=== PATIENT | male | born 1945 | race African-American/Black ===

== ENCOUNTER 2016-06-26 06:02 | Inpatient (IN) | payer OTHER ==
[2016-06-13 11:02] VITALS: BMI 34.4
[2016-06-26] MEDS ORDERED: CELECOXIB 200 MG CAPSULE PO ONE (06:13)
[2016-06-26] MEDS ORDERED: TRANEXAMIC ACID 1000 MG/10 ML VIAL IVPUSH ONE (06:13)
[2016-06-26] MEDS ORDERED: ROPIVICAINE 0.2%/MORPH PF/KETOROLAC - 51ML DISP.SYRINGE IA ONE ×2 (06:13→10:32)
[2016-06-26] MEDS ORDERED: CEFAZOLIN 2 GM in DEXTROSE 5%-WATER - 50 ML IVPB ONE (06:13)
[2016-06-26] MEDS ORDERED: GABAPENTIN 300 MG CAPSULE (FP) PO ONE (06:13)
[2016-06-26] MEDS ORDERED: PROPOFOL 20 ML ONE ×2 (06:57→09:46)
[2016-06-26] MEDS ORDERED: SUCCINYLCHOLINE CHLORIDE 200 MG/10 ML VIAL ONE (06:58)
[2016-06-26] MEDS ORDERED: LIDOCAINE HCL/PF 2% SDV 5ML VIAL ONE (07:03)
[2016-06-26] MEDS ORDERED: BUPIVACAINE HCL/PF 0.5% (5MG/ML) 10 ML VIAL ONE (07:08)
[2016-06-26] MEDS ORDERED: MIDAZOLAM HCL 2 MG/2 ML SINGLE DOSE VIAL ONE (07:29)
[2016-06-26] MEDS ORDERED: SODIUM CHLORIDE 0.9% P/F 10 ML VIAL IJ ONE ×2 (07:29→08:43)
[2016-06-26] MEDS ORDERED: ROPIVACAINE HCL 0.5% 30ML VIAL ONE (07:29)
[2016-06-26] MEDS ORDERED: DEXAMETHASONE SOD PHOSPHATE/PF 10 MG/ML SDV ONE (07:29)
[2016-06-26] MEDS ORDERED: TRANEXAMIC ACID 1000 MG/10 ML VIAL ONE (08:32)
[2016-06-26] MEDS ORDERED: ePHEDrine SULFATE 50 MG/1 ML AMPULE ONE (08:42)
[2016-06-26] MEDS ORDERED: ceFAZolin SODIUM 1 GM VIAL ONE ×3 (09:21→10:16)
[2016-06-26] MEDS ORDERED: ONDANSETRON 4 MG/2 ML VIAL ONE (10:09)
[2016-06-26] MEDS ORDERED: ONDANSETRON 4 MG/2 ML VIAL IVPUSH PRN (10:53)
[2016-06-26] MEDS ORDERED: PROMETHAZINE HCL 25 MG/1 ML VIAL IVPUSH PRN (10:53)
[2016-06-26] MEDS ORDERED: oxyCODONE HCL 5 MG TABLET PO PRN ×2 (10:54)
[2016-06-26] MEDS ORDERED: ROPIVACAINE 0.2% 400ML 400 ML ML NR ONE ×2 (10:54→15:00)
[2016-06-26] MEDS ORDERED: LACTATED RINGERS SOLUTION 1,000 ML IV SCH (11:00)
[2016-06-26] MEDS ORDERED: PATIENT'S OWN MEDICATION (NON-FORMULARY) (Alendronate Na [Fosamax (Weekly)] 70 MG) PO SCH (11:30)
[2016-06-26] MEDS: ACETAMINOPHEN 1000 MG/100 ML VIAL (NON FORMULARY) IVPB ONE ×2 (12:10→13:57)
[2016-06-26] MEDS ORDERED: INSULIN (NOVOLOG) ASPART 100 UNITS/ML 10ML VIAL ONE ×3 (12:29→21:04)
[2016-06-26] MEDS: INSULIN (NOVOLOG) ASPART 100 UNITS/ML 10ML VIAL SQ ONE ×2 (12:38→14:00)
[2016-06-26] MEDS ORDERED: MAGNESIUM HYDROX 2400MG/30ML ORAL SUSPENSION 30 ML CUP PO PRN (13:48)
[2016-06-26] MEDS ORDERED: MAG HYDROX/AL HYDROX/SIMETH 30 ML UNIT-DOSE CUP PO PRN (13:48)
[2016-06-26] MEDS ORDERED: ONDANSETRON 4 MG/2 ML VIAL IVPB PRN (13:48)
[2016-06-26] MEDS ORDERED: INSULIN GLARGINE HUM REC ANLOG 22 UNIT SQ SCH (14:00)
[2016-06-26] MEDS: SODIUM CHLORIDE 1,000 ML IV SCH (14:33)
[2016-06-26] MEDS: CEFAZOLIN 2 GM/D5W 50 ML IVPB SCH ×2 (15:45→23:42)
[2016-06-26] MEDS ORDERED: INSULIN SLIDING SCALE (NOVOLOG) 1 VIAL SQ SCH (16:30)
[2016-06-26] MEDS: INSULIN SLIDING SCALE (NOVOLOG) 1 VIAL SQ SCH ×2 (16:43→21:14)
[2016-06-26] MEDS: ACETAMINOPHEN 325 MG TABLET (FP) PO SCH ×2 (18:00→23:42)
--- NOTE | 2016-06-26 19:16 | CONSULT ---
Consultation: REQUESTING PROVIDER: Dr. Romero CONSULT REQUEST: We have been asked to medically evaluate this patient for ( Medical Management). HISTORY OF PRESENT ILLNESS: This is a pleasant 71 y/o male with a PMHx of: Hypertension, Diabetes Mellitus, Prostate Ca (injections q6 months). PSHx of: Right Knee Arthroscopy 20 yrs ago. s/p R- TKR POD #0. Who is at the bedside alert, awake and oriented. Patient reports he decided to have surgery secondary to his decreased mobility and constant knee pain. Patient reports being pain free, PS 0/10. Patient reports full sensation to his lower extremity. Patient reports voiding without incident. He denies fever, chills, cough, SOB, dizziness, CP, AP, N/V/D. PAST MEDICAL HISTORY: Hypertension, Diabetes Mellitus, Prostate Ca (injections q6 months) PAST SURGICAL HISTORY: Right Knee Arthroscopy 20 yrs ago SOCIAL HISTORY He denies Tobacco, Alcohol, RD use FAMILY HISTORY None ALLERGIES 3 Allergy/AdvReac Type Severity Reaction Status Date / Time No Known Drug Allergies Allergy Verified 06/13/16 10:53 BAND AIDS AdvReac Severe Itching Uncoded 06/13/16 10:53 HOME MEDICATIONS 3 Medication Instructions Recorded Alendronate Na [Fosamax] 70 mg PO Q7D 06/13/16 Amlodipine Besylate [Norvasc -] 10 mg PO HS 06/13/16 Aspirin [Aspirin EC] 81 mg PO DAILY 06/13/16 Atorvastatin Ca [Lipitor] 80 mg PO HS 06/13/16 Calcium Carbonate/Vitamin D3 1 each PO BID 06/13/16 [Calcium 600 + Vit D Tablet] Cholecalciferol (Vitamin D3) 1,000 unit PO DAILY 06/13/16 [Vitamin D3 -] Fosinopril Sodium [Monopril -] 80 mg PO HS 06/13/16 Furosemide [Lasix -] 40 mg PO DAILY 06/13/16 Insulin (Levemir) [Levemir Flexpen 30 units SQ BID 06/13/16 -] Terazosin HCl 2 mg PO BID 06/13/16 Ferrous Sulfate 325 mg PO BID 06/26/16 Insulin Glargine,Hum.rec.anlog 22 units SQ TID 06/26/16 [Lantus Solostar PEN (NF)] REVIEW OF SYSTEMS: CONSTITUTIONAL: Absent: fever, chills, diaphoresis, generalized weakness, malaise, loss of appetite, weight change HEENT: Absent: rhinorrhea, nasal congestion, throat pain, throat swelling, difficulty swallowing, mouth swelling, ear pain, eye pain, visual changes CARDIOVASCULAR: Absent: chest pain, syncope, palpitations, irregular heart rate, lightheadedness , peripheral edema RESPIRATORY: Absent: cough, shortness of breath, dyspnea with exertion, orthopnea, wheezing, stridor, hemoptysis GASTROINTESTINAL: Absent: abdominal pain, abdominal distension, nausea, vomiting, diarrhea, constipation, melena, hematochezia GENITOURINARY: Absent: dysuria, frequency, urgency, hesitancy, hematuria, flank pain, genital pain MUSCULOSKELETAL: right knee pain Absent: myalgia, arthralgia, joint swelling, back pain, neck pain SKIN: Absent: rash, itching, pallor HEMATOLOGIC/IMMUNOLOGIC: Absent: easy bleeding, easy bruising, lymphadenopathy, frequent infections ENDOCRINE: Absent: unexplained weight gain, unexplained weight loss, heat intolerance, cold intolerance NEUROLOGIC: Absent: headache, focal weakness or paresthesias, dizziness, unsteady gait, seizure, mental status changes, bladder or bowel incontinence PSYCHIATRIC: Absent: anxiety, depression, suicidal or homicidal ideation, hallucinations. PHYSICAL EXAMINATION Vital Signs - 24 hr 06/26/16 06/26/16 06/26/16 06:47 07:10 11:37 Temperature 98.6 F 97.7 F Pulse Rate 76 72 Respiratory 18 16 Rate Blood Pressure 114/64 112/88 O2 Sat by Pulse 98 99 Oximetry (%) 06/26/16 06/26/16 06/26/16 11:40 11:45 11:50 Temperature Pulse Rate 66 70 64 Respiratory 15 16 13 Rate Blood Pressure 139/68 139/72 138/68 O2 Sat by Pulse 100 100 100 Oximetry (%) 06/26/16 06/26/16 06/26/16 12:05 12:20 12:35 Temperature Pulse Rate 71 58 L 75 Respiratory 15 14 14 Rate Blood Pressure 133/63 132/67 138/68 O2 Sat by Pulse 100 100 100 Oximetry (%) 06/26/16 06/26/16 06/26/16 12:42 13:48 14:39 Temperature 97.7 F 97.4 F L Pulse Rate 58 L 68 Respiratory 14 18 18 Rate Blood Pressure 132/67 133/66 O2 Sat by Pulse 100 Oximetry (%) GENERAL: Obese, awake, alert, and fully oriented, in no acute distress. HEAD: Normal with no signs of trauma. EYES: Pupils equal, round and reactive to light, extraocular movements intact, sclera anicteric, conjunctiva clear. No lid lag. EARS, NOSE, THROAT: Ears normal, nares patent, oropharynx clear without exudates. Moist mucous membranes. NECK: Normal range of motion, supple without lymphadenopathy, JVD, or masses. LUNGS: Breath sounds equal, clear to auscultation bilaterally. No wheezes, and no crackles. No accessory muscle use. HEART: Regular rate and rhythm, normal S1 and S2 without murmur, rub or gallop. ABDOMEN: Soft, nontender, not distended, normoactive bowel sounds, no guarding, no rebound, no masses. No hepatomegaly or splenomegaly. MUSCULOSKELETAL: LROM RLE, mild TN to palpation, dressing dry and intact, no active bleed. Icepack, stimulator noted. Normal range of motion at RUE, LUE, LLE joints. No bony deformities or tenderness. No CVA tenderness. UPPER EXTREMITIES: 2+ pulses, warm, well-perfused. No cyanosis. No clubbing. Cap refill <2 seconds. No peripheral edema. LOWER EXTREMITIES: 2+ pulses, warm, well-perfused. No calf tenderness. No peripheral edema. NEUROLOGICAL: Cranial nerves II-XII intact. Normal speech. Normal gait. PSYCHIATRIC: Cooperative. Good eye contact. Appropriate mood and affect. SKIN: Warm, dry, normal turgor, no rashes or lesions noted. Laboratory Results - last 24 hr 06/26/16 06/26/16 06/26/16 06:33 08:47 12:13 POC Glucometer 213 199 255 06/26/16 16:37 POC Glucometer 391 Active Medications Generic Name Dose Route Start Last Admin Trade Name Freq PRN Reason Stop Dose Admin Acetaminophen 650 mg 06/26/16 18:00 06/26/16 18:00 Tylenol - PO 06/29/16 17:59 650 mg Q6H MAGDALENO Administration Al Hydroxide/Mg Hydroxide 30 ml 06/26/16 13:48 Mylanta Oral Suspension - PO Q4H PRN DYSPEPSIA Amlodipine Besylate 10 mg 06/26/16 22:00 Norvasc - PO HS MAGDALENO Ascorbic Acid 500 mg 06/26/16 22:00 Vitamin C - PO BID [facility] Aspirin 325 mg 06/27/16 08:00 Asa - PO DAILY@0800 [facility] Atorvastatin Calcium 80 mg 06/26/16 22:00 Lipitor - PO HS [facility] Calcium Carbonate/Cholecalciferol 1 tab 06/26/16 22:00 Os-Saravanan 500+D - PO BID [facility] Celecoxib 200 mg 06/27/16 10:00 Celebrex - PO DAILY [facility] Cholecalciferol 1,000 unit 06/27/16 10:00 Vitamin D3 - PO DAILY [facility] Fentanyl 25 mcg 06/26/16 10:53 Sublimaze Injection - IVPUSH 06/29/16 10:54 [id number] PRN PAIN Ferrous Sulfate 325 mg 06/26/16 22:00 Feosol - PO BID [facility] Furosemide 40 mg 06/27/16 10:00 Lasix - PO DAILY [facility] Gabapentin 300 mg 06/26/16 22:00 Neurontin - PO 06/29/16 21:59 BID [facility] Cefazolin Sodium/Dextrose 50 mls @ 100 mls/hr 06/26/16 16:00 06/26/16 15:45 Ancef 2 Gm Premixed Ivpb - IVPB 06/27/16 00:29 100 mls/hr Q8H [facility] Administration Sodium Chloride 1,000 mls @ 125 mls/hr 06/26/16 14:00 06/26/16 14:33 Normal Saline - IV 125 mls/hr ASDIR [facility] Administration Insulin Aspart 1 vial 06/26/16 16:30 06/26/16 16:43 Novolog Vial Sliding Scale - SQ 10 units ACHS [facility] Administration Protocol Insulin Detemir 30 units 06/26/16 22:00 Levemir Vial SQ BIDI [facility] Magnesium Hydroxide 30 ml 06/26/16 13:48 Milk Of Magnesia - PO PRN PRN CONSTIPATION Multivitamins/Minerals/Vitamin C 1 tab 06/27/16 10:00 Tab-A-Vit - PO DAILY [facility] Non-Formulary Medication 80 mg 06/26/16 22:00 Fosinopril Sodium PO HS [facility] Ondansetron HCl 4 mg 06/26/16 13:48 Zofran Injection IVPB Q6H PRN NAUSEA Oxycodone HCl 10 mg 06/26/16 22:00 Oxycontin - PO 06/29/16 10:54 BID MAGDALENO Oxycodone HCl 5 mg 06/26/16 10:54 Roxicodone - PO 06/29/16 10:55 Q4H PRN PAIN LEVEL 1-5 Oxycodone HCl 10 mg 06/26/16 10:54 Roxicodone - PO 06/29/16 10:55 Q4H PRN PAIN LEVEL 6-10 Pantoprazole Sodium 40 mg 06/27/16 10:00 Protonix - PO DAILY MAGDALENO Senna/Docusate Sodium 1 tablet 06/26/16 22:00 Pericolace - PO BID MAGDALENO Terazosin HCl 2 mg 06/26/16 22:00 Hytrin - PO BID MAGDALENO ASSESSMENT/PLAN: 71 y/o male with a PMHx HTN, DM, OA. s/p R-TKR, POD #0. 1. Continue Ortho Regimen 2. Hypertension- monitor BP, continue Norvac 3. Diabetes Mellitus- Uncontrolled likely possible due to inflammatory response , stress. BGMs, ISS, monitor renal function 4. OA- Continue current treatment plan 5. HLD- Continue Statin 5. PT 6. Incentive Spirometer 7. Repeat CBC, BMP in am Dispo: We will continue to follow the patient. Thank you for this consultative opportunity. Problem List - Problems (1) Status post total right knee replacement Code(s): Z96.651 - PRESENCE OF RIGHT ARTIFICIAL KNEE JOINT (2) HTN (hypertension) Code(s): I10 - ESSENTIAL (PRIMARY) HYPERTENSION (3) Diabetes mellitus Code(s): E11.9 - TYPE 2 DIABETES MELLITUS WITHOUT COMPLICATIONS (4) Prostate cancer Code(s): C61 - MALIGNANT NEOPLASM OF PROSTATE (5) DVT prophylaxis Code(s): YJS0750 - Visit type - Emergency Visit Emergency Visit: No - New Patient This patient is new to me today: Yes Date on this admission: 06/26/16 - Critical Care Critical Care patient: No
[2016-06-26] MEDS ORDERED: PT OWN MED DRAWER 7, Y5N ONE (21:07)
[2016-06-26] MEDS: INSULIN DETEMIR 100 UNITS/ML MDV SQ SCH (21:14)
[2016-06-26] MEDS: CALCIUM 500MG/VIT-D 200 UNITS COMBO TABLET (FP) PO SCH (21:17)
[2016-06-26] MEDS: TERAZOSIN HCL 1 MG CAPSULE PO SCH (21:17)
[2016-06-26] MEDS: amLODIPine BESYLATE 10 MG TABLET (FP) PO SCH (21:17)
[2016-06-26] MEDS: GABAPENTIN 300 MG CAPSULE (FP) PO SCH (21:17)
[2016-06-26] MEDS: oxyCODONE HCL 10 MG SUSTAINED ACTING TABLET PO SCH (21:17)
[2016-06-26] MEDS: SENNOSIDES/DOCUSATE COMBO (SENNA PLUS) TABLET (UD) PO SCH (21:18)
[2016-06-26] MEDS: ASCORBIC ACID 500 MG TABLET (FP) PO SCH (21:18)
[2016-06-26] MEDS: ATORVASTATIN CA 80 MG TABLET (FP) PO SCH (21:18)
[2016-06-26] MEDS: FERROUS SO4 325 MG TABLET (FP) PO SCH (21:56)
[2016-06-26] MEDS ORDERED: GABAPENTIN 300 MG CAPSULE (FP) PO SCH (22:00)
[2016-06-26] MEDS ORDERED: FOSINOPRIL SODIUM PO SCH (22:00)
[2016-06-27] MEDS: ACETAMINOPHEN 325 MG TABLET (FP) PO SCH ×3 (06:46→17:38)
[2016-06-27] MEDS: INSULIN DETEMIR 100 UNITS/ML MDV SQ SCH ×2 (06:47→16:47)
[2016-06-27] MEDS: INSULIN SLIDING SCALE (NOVOLOG) 1 VIAL SQ SCH ×4 (06:47→21:36)
[2016-06-27] MEDS: ASPIRIN 325 MG TABLET PO SCH (08:02)
[2016-06-27 08:19] LABS: MCH 29.4 pg (25.7-33.7); MCHC 32.8 g/dl (32.0-35.9); MEAN CELL VOLUME 89.6 fl (80-96); PLATELET COUNT 199 K/MM3 (134-434); RDW 13.3 % (11.9-15.9); WHITE BLOOD COUNT 8.6 K/mm3 (4.0-10.8)
[2016-06-27 08:32] LABS: ANION GAP 7 (8-16); CALCIUM 8.4 mg/dl (8.4-10.2); CO2 22 mmol/L (22-28); GLUCOSE,RANDOM 267 mg/dl (74-106)
[2016-06-27] MEDS: PANTOPRAZOLE 40 MG TABLET (FP) PO SCH (09:05)
[2016-06-27] MEDS: CELECOXIB 200 MG CAPSULE PO SCH (09:05)
[2016-06-27] MEDS: FUROSEMIDE 40 MG TABLET (FP) PO SCH (09:05)
[2016-06-27] MEDS: oxyCODONE HCL 10 MG SUSTAINED ACTING TABLET PO SCH ×2 (09:05→21:35)
[2016-06-27] MEDS: MULTIVITAMINS (DAILY MVI) TABLET (FP) PO SCH (09:05)
[2016-06-27] MEDS: FERROUS SO4 325 MG TABLET (FP) PO SCH ×2 (09:05→21:36)
[2016-06-27] MEDS: SENNOSIDES/DOCUSATE COMBO (SENNA PLUS) TABLET (UD) PO SCH ×2 (09:05→21:34)
[2016-06-27] MEDS: CHOLECALCIFEROL (VITAMIN D3) 1,000 UNIT TABLET (FP) PO SCH (09:05)
[2016-06-27] MEDS: ASCORBIC ACID 500 MG TABLET (FP) PO SCH ×2 (09:05→21:35)
[2016-06-27] MEDS: CALCIUM 500MG/VIT-D 200 UNITS COMBO TABLET (FP) PO SCH ×2 (09:05→21:34)
[2016-06-27] MEDS: GABAPENTIN 300 MG CAPSULE (FP) PO SCH ×2 (09:06→21:34)
[2016-06-27] MEDS: TERAZOSIN HCL 1 MG CAPSULE PO SCH ×2 (09:07→21:33)
[2016-06-27] MEDS ORDERED: INSULIN (NOVOLOG) ASPART 100 UNITS/ML 10ML VIAL ONE ×3 (11:13→21:26)
--- NOTE | 2016-06-27 11:21 | PN ---
[id number] OBJECTIVE: patient is a t 71 y/o male with a PMHx of: Hypertension, IDDM , Prostate Ca (injections q6 months). PSHx of: Right Knee Arthroscopy 20 yrs ago. s/p R- TKR POD # 1 Vital Signs Period Temp Pulse Resp BP Sys/Dominguez Pulse Ox Last 24 Hr 97.4 F-97.9 F 58-75 13-18 112-139/59-88 98-100 GENERAL: The patient is awake, alert, and fully oriented, in no acute distress. HEAD: Normal with no signs of trauma. EYES: PERRL, extraocular movements intact, sclera anicteric, conjunctiva clear. No ptosis. ENT: Ears normal, nares patent, oropharynx clear without exudates, moist mucous membranes. NECK: Trachea midline, full range of motion, supple. LUNGS: Breath sounds equal, clear to auscultation bilaterally, no wheezes, no crackles, no accessory muscle use. HEART: Regular rate and rhythm, S1, S2 without murmur, rub or gallop. ABDOMEN: Soft, nontender, nondistended, normoactive bowel sounds, no guarding, no rebound, no hepatosplenomegaly, no masses. EXTREMITIES: 2+ pulses, warm, well-perfused, no edema. RIGHT LOWER EXTREMITIES: dressing CDI, less than 3 second capillary refill, + 3 pedal pulse NEUROLOGICAL: Cranial nerves II through XII grossly intact. Normal speech, gait not observed. PSYCH: Normal mood, normal affect. SKIN: Warm, dry, normal turgor, no rashes or lesions noted Laboratory Results - last 24 hr 06/26/16 06/26/16 06/26/16 12:13 16:37 21:11 WBC RBC Hgb Hct MCV MCHC RDW Plt Count MPV Sodium Potassium Chloride Carbon Dioxide Anion Gap BUN Creatinine POC Glucometer 255 391 370 Random Glucose Calcium 06/27/16 06/27/16 06/27/16 06:43 07:00 07:00 WBC 8.6 RBC 3.38 L Hgb 9.9 L Hct 30.3 L MCV 89.6 MCHC 32.8 RDW 13.3 Plt Count 199 MPV 9.0 Sodium 136 Potassium 5.2 H Chloride 107 Carbon Dioxide 22 Anion Gap 7 L BUN 39 H Creatinine 2.0 H POC Glucometer 254 Random Glucose 267 H Calcium 8.4 Active Medications Generic Name Dose Route Start Last Admin Trade Name Freq PRN Reason Stop Dose Admin Acetaminophen 650 mg 06/26/16 18:00 06/27/16 11:16 Tylenol - PO 06/29/16 17:59 650 mg Q6H MAGDALENO Administration Al Hydroxide/Mg Hydroxide 30 ml 06/26/16 13:48 Mylanta Oral Suspension - PO Q4H PRN DYSPEPSIA Amlodipine Besylate 10 mg 06/26/16 22:00 06/26/16 21:17 Norvasc - PO 10 mg HS MAGDALENO Administration Ascorbic Acid 500 mg 06/26/16 22:00 06/27/16 09:05 Vitamin C - PO 500 mg BID MAGDALENO Administration Aspirin 325 mg 06/27/16 08:00 06/27/16 08:02 Asa - PO 325 mg DAILY@0800 MAGDALENO Administration Atorvastatin Calcium 80 mg 06/26/16 22:00 06/26/16 21:18 Lipitor - PO 80 mg HS MAGDALENO Administration Calcium Carbonate/Cholecalciferol 1 tab 06/26/16 22:00 06/27/16 09:05 Os-Saravanan 500+D - PO 1 tab BID MAGDALENO Administration Celecoxib 200 mg 06/27/16 10:00 06/27/16 09:05 Celebrex - PO 200 mg DAILY MAGDALENO Administration Cholecalciferol 1,000 unit 06/27/16 10:00 06/27/16 09:05 Vitamin D3 - PO 1,000 unit DAILY MAGDALENO Administration Fentanyl 25 mcg 06/26/16 10:53 Sublimaze Injection - IVPUSH 06/29/16 10:54 [id number] PRN PAIN Ferrous Sulfate 325 mg 06/26/16 22:00 06/27/16 09:05 Feosol - PO 325 mg BID MAGDALENO Administration Furosemide 40 mg 06/27/16 10:00 06/27/16 09:05 Lasix - PO 40 mg DAILY MAGDALENO Administration Gabapentin 300 mg 06/26/16 22:00 06/27/16 09:06 Neurontin - PO 06/29/16 21:59 300 mg BID MAGDALENO Administration Sodium Chloride 1,000 mls @ 125 mls/hr 06/26/16 14:00 06/26/16 14:33 Normal Saline - IV 125 mls/hr ASDIR MAGDALENO Administration Insulin Aspart 1 vial 06/26/16 16:30 06/27/16 11:16 Novolog Vial Sliding Scale - SQ 10 units ACHS MAGDALENO Administration Protocol Insulin Detemir 30 units 06/26/16 22:00 06/27/16 06:47 Levemir Vial SQ 30 units BIDI MAGDALENO Administration Magnesium Hydroxide 30 ml 06/26/16 13:48 Milk Of Magnesia - PO PRN PRN CONSTIPATION Multivitamins/Minerals/Vitamin C 1 tab 06/27/16 10:00 06/27/16 09:05 Tab-A-Vit - PO 1 tab DAILY MAGDALENO Administration Non-Formulary Medication 80 mg 06/26/16 22:00 06/26/16 21:53 Fosinopril Sodium PO Not Given HS MAGDALENO Ondansetron HCl 4 mg 06/26/16 13:48 Zofran Injection IVPB Q6H PRN NAUSEA Oxycodone HCl 10 mg 06/26/16 22:00 06/27/16 09:05 Oxycontin - PO 06/29/16 10:54 10 mg BID MAGDALENO Administration Oxycodone HCl 5 mg 06/26/16 10:54 Roxicodone - PO 06/29/16 10:55 Q4H PRN PAIN LEVEL 1-5 Oxycodone HCl 10 mg 06/26/16 10:54 Roxicodone - PO 06/29/16 10:55 Q4H PRN PAIN LEVEL 6-10 Pantoprazole Sodium 40 mg 06/27/16 10:00 06/27/16 09:05 Protonix - PO 40 mg DAILY MAGDALENO Administration Senna/Docusate Sodium 1 tablet 06/26/16 22:00 06/27/16 09:05 Pericolace - PO 1 tablet BID MAGDALENO Administration Terazosin HCl 2 mg 06/26/16 22:00 06/27/16 09:07 Hytrin - PO 2 mg BID MAGDALENO Administration ASSESSMENT/PLAN: 1) ms s/p right TKR - pt as per orthopedist - prn pain medication - incentive spirometer 2) card hypertension - hold AC due to WISAM, continue norvasc, b/p at goal hld - continue statin 3) endo iddm - continue fingersticks achs w/regular insulin coverage and levermir bid - elevated fingersticks start novolg 5units achs 4) neph wisam - creatine 2.0 unknown baseline - close monitoring Dispo: We will continue to follow the patient. Thank you for this consultative opportunity. Visit type - Emergency Visit Emergency Visit: No - New Patient This patient is new to me today: Yes Date on this admission: 06/27/16 - Critical Care Critical Care patient: No - Discharge Referral Referred to [facility] No
--- NOTE | 2016-06-27 11:28 | PN ---
Progress Note (short form) - Note Progress Note: 71M POD1 s/p Right TKR under spinal with continuous adductor canal catheter with selective tibial blocks doing well. AVSS, pt reports no anesthetic complications, states that pain is well controlled. Sensory and motor function intact in both lower extremities.
--- NOTE | 2016-06-27 11:44 | OP ---
DATE OF OPERATION: 06/26/2016 SURGEON: Dwayne Palma MD ANESTHESIOLOGIST: Juan Hamilton MD TYPE OF ANESTHESIA: Regional with an adductor canal block with an indwelling catheter, as well as additional regional block as well as spinal. EPOXY SPECIALIST: GHAZAL Styles, whose skilled surgical assistance was necessary for the retraction and protection of vital structures to the handling and implementation of precise and delicate surgical instrumentation as well as the overall safe conveyance of the procedure. BLOOD LOSS: Approximately 150 mL. Kefzol was given preoperatively for prophylaxis against infection. An additional gram of Kefzol was given at the time of wound closure. Tranexamic acid, 1 g, was given preoperatively. A 2nd gram was instilled into the wound at the time of wound closure. PREOPERATIVE DIAGNOSIS: Severe right knee osteoarthritis with varus deformity and flexor contracture. POSTOPERATIVE DIAGNOSIS: No evidence of full-thickness rotator cuff tear. A sever glenohumeral joint arthritis, acromioclavicular joint arthritis, extensive labral tearing, extensive shoulder impingement. PROCEDURE: Computer-navigated right total knee replacement. HARDWARE USED: R[employer] DePuy PFC Sigma PCL-Retaining Knee System with a size 6 press-fit femur, a size 5 cemented tibial tray, and a 10-mm polyethylene spacer. One bag of DePuy bone cement was used and mixed in a vacuum mixing bowel. Patella was left un-resurfaced. A mixture of Duramorph, ropivacaine, and Toradol were instilled into the knee at the conclusion of the procedure. COMPLICATIONS: There were no complications. INDICATIONS: The patient is a 71-year-old male with longstanding history of severe right knee osteoarthritis unrelieved with extensive conservative treatment. He suffers from multiple medical problems including type 2 diabetes and history of congestive heart failure, hypertension, who has had terrible pain in his knee despite attempts at conservative treatment. Treatment options were reviewed with the patient, both operative and nonoperative treatment, prior to todays surgery in the office and this was again reviewed with him in the preoperative holding area. The nonoperative treatments were discussed at length including weight loss, injection therapy, physical therapy, and medication. The risks and benefits of such were discussed. Operative intervention was discussed. The risks of surgery were explained to include, but not be limited to, infection, stiffness, continued pain, chance that he could have a blood clot that could spread from his legs to his lungs and even cause and this could occur despite anticoagulation and DVT prophylaxis, chance that he may still have pain, chance that he could have a permanent neurologic injury leaving him with permanent loss of use of function of the leg, chance that he could have a massive blood loss requiring transfusion, and chance that should he develop an infection it could be a complete disaster necessitating removing his knee replacement, placing him on long-term IV antibiotics and chance that should the infection not be curable, he may ultimately be left without a knee replacement, and in an unlikely, but possible scenario, chance that should he develop a life-threatening infection, it may require amputation. Patient understands this. physical therapy would like to proceed with the planned procedure. He has identified his right knee as the operative site, which was confirmed by the operating room staff, and he agrees to proceed with the planned procedure. PROCEDURE IS FOLLOWS: After administration of a regional anesthetic in the preoperative holding area, patient was brought into the operating room where spinal anesthetic was administered by the anesthesiologist. Tourniquet was placed high in the right thigh, but it was not inflated during the case. The leg was then prepped and draped in the usual sterile manner. A standard midline incision was made. The incision was carried down through the subcutaneous tissues onto the extensor mechanism of the knee using electrocautery device and Aquamantys device to maintain hemostasis. The extensor mechanism was then entered at the junction roughly between the middle and medial and lateral thirds, and superior portion of the quadriceps tendon. The incision was carried down through the subcutaneous tissues onto the superior pole of the patella curving medially, leaving a small cuff of tissue around the patella for later reapproximation. The patella was then everted. All osteophytes and menisci were removed. The patient had obvious severe tricompartmental osteoarthritis with the medial compartment being more severely affected than the lateral. He had a severe varus deformity which measured approximately 10 degrees prior to soft tissue releases as a 10-degree flexion contracture. A medial soft tissue release was then performed. ACL was released. PCL was recessed. Osteophytes and menisci were removed. Two sets of 4-mm guidepins were then placed in the medial aspect of the proximal tibia and distal aspect of the medial femur, to which the computer arrays were then attached. The patients bony anatomy was then entered in the computer navigation device as well as the hip center of rotation. The tibia, then the femur and machine, to correct the almost 10-degree varus deformity and flexion contracture creating balanced flexion and extension gaps, full and easy extension and flexion with a trial size 6 femur and size 5 tibia with a 10-mm polyethylene tray with good tracking of the patella. The trial components were then removed. The exposed bony cancellous surfaces were then prepared with a jet lavage to create clean exposed cancellous surfaces. One bag of agri.capitaluy Bone Cement was then mixed in a vacuum mixing bowl. This was then precoated on the tibial component as well as being finger pressurized on the exposed now cleanly prepared tibial plateau. The tibial component was then impacted in place and the femoral component. The knee components were held in extension with the trial polyethylene spacer until the cement had hardened. All excess bone cement was then removed. The knee was then taken through a range of motion and found to have balanced flexion and extension gaps with neutral varus/valgus alignment, full and easy extension, full and easy flexion, with good tracking of the patella with a trial spacer. The final space was then impacted in place with equal stability and tracking as well as balanced flexion and extension gaps trial. A dilute Betadine solution was instilled in the knee and then left to sit for 3 minutes. This was evacuated, and the wound was then irrigated with copious amounts of antibiotic normal saline solution using a jet lavage. Hemostasis was again achieved with the Aquamantys device and electrocautery device. The extensor mechanism was then reapproximated to itself using interrupted No. 1 Vicryl sutures, and then a running No. 1 Stratafix suture was then performed with the knee in maximal flexion with a whipstitch down the extensor mechanism. The aforementioned 1 g of tranexamic acid and pain cocktail were instilled in the knee. Subcutaneous tissues were closed with No. 1 and 2-0 Vicryl sutures, and a running subcuticular stitch, and a Stratafix suture was then used to reapproximate the skin edges. Dermabond was then applied on the wound as well the pin site. After the Dermabond had hardened, Aquacel dressings were then applied. Then, thigh-high CANDE stockings was applied. Of note, during the procedure, the patient had thigh-high CANDE stocking and sequential compression device on his nonoperative leg. Permanent x-rays were obtained. Postoperatively, the patient will be full weightbearing as tolerated. He is going to have DVT prophylaxis with early ambulation, sequential compression devices, and aspirin for 4 weeks. We are also going to discontinue prophylactic antibiotics within 24 hours. We are going to try not to use a Burgess catheter for fear of causing a dreaded urinary tract infection and dreaded periprosthetic infection. DWAYNE PALMA M.D. [id number]
[2016-06-27] MEDS: SODIUM CHLORIDE 1,000 ML IV SCH (14:47)
[2016-06-27] MEDS: Insulin (LOG) Aspart 100 UNITS/ML VIAL SQ SCH ×2 (16:47→21:37)
[2016-06-27] MEDS ORDERED: PT OWN MED DRAWER 7, Y5N ONE (21:20)
[2016-06-27] MEDS: ATORVASTATIN CA 80 MG TABLET (FP) PO SCH (21:34)
[2016-06-27] MEDS: amLODIPine BESYLATE 10 MG TABLET (FP) PO SCH (21:34)
[2016-06-28] MEDS: ACETAMINOPHEN 325 MG TABLET (FP) PO SCH ×3 (02:47→13:08)
[2016-06-28 06:37] VITALS: BP 146/63; PULSE 85; TEMP 99.2
[2016-06-28] MEDS: INSULIN DETEMIR 100 UNITS/ML MDV SQ SCH (06:44)
[2016-06-28] MEDS ORDERED: INSULIN (NOVOLOG) ASPART 100 UNITS/ML 10ML VIAL ONE ×2 (07:50→12:31)
[2016-06-28] MEDS: INSULIN SLIDING SCALE (NOVOLOG) 1 VIAL SQ SCH ×2 (07:54→13:07)
[2016-06-28] MEDS: Insulin (LOG) Aspart 100 UNITS/ML VIAL SQ SCH ×2 (07:54→13:07)
[2016-06-28] MEDS: ASPIRIN 325 MG TABLET PO SCH (07:55)
[2016-06-28 08:59] LABS: MCH 29.3 pg (25.7-33.7); MCHC 32.9 g/dl (32.0-35.9); MEAN PLT VOLUME 9.6 fl (7.5-11.1); PLATELET COUNT 196 K/MM3 (134-434); RDW 13.1 % (11.9-15.9); WHITE BLOOD COUNT 9.4 K/mm3 (4.0-10.8)
--- NOTE | 2016-06-28 09:46 | PN ---
Progress Note (short form) - Note Progress Note: ANESTHESIOLOGY POST-OP CHECK POD #2 after right TKR with adductor canal catheter. Denies pain, numbness, weakness. Adductor canal catheter removed - tip intact. Continue management as per primary team.
[2016-06-28] MEDS: oxyCODONE HCL 10 MG SUSTAINED ACTING TABLET PO SCH (10:02)
[2016-06-28] MEDS: GABAPENTIN 300 MG CAPSULE (FP) PO SCH (10:03)
[2016-06-28] MEDS: CALCIUM 500MG/VIT-D 200 UNITS COMBO TABLET (FP) PO SCH (10:03)
[2016-06-28] MEDS: CHOLECALCIFEROL (VITAMIN D3) 1,000 UNIT TABLET (FP) PO SCH (10:03)
[2016-06-28] MEDS: SENNOSIDES/DOCUSATE COMBO (SENNA PLUS) TABLET (UD) PO SCH (10:03)
[2016-06-28] MEDS: FUROSEMIDE 40 MG TABLET (FP) PO SCH (10:03)
[2016-06-28] MEDS: MULTIVITAMINS (DAILY MVI) TABLET (FP) PO SCH (10:03)
[2016-06-28] MEDS: PANTOPRAZOLE 40 MG TABLET (FP) PO SCH (10:03)
[2016-06-28] MEDS: CELECOXIB 200 MG CAPSULE PO SCH (10:03)
[2016-06-28] MEDS: ASCORBIC ACID 500 MG TABLET (FP) PO SCH (10:03)
[2016-06-28] MEDS: FERROUS SO4 325 MG TABLET (FP) PO SCH (10:04)
[2016-06-28] MEDS: TERAZOSIN HCL 1 MG CAPSULE PO SCH (10:07)
[2016-06-28 12:49] LABS: ALBUMIN 2.9 g/dl (3.5-5.0); ALK PHOS 56 U/L (32-92); ANION GAP 9 (8-16); BILIRUBIN,TOTAL 0.6 mg/dl (0.2-1.0); CALCIUM 8.3 mg/dl (8.4-10.2); CO2 21 mmol/L (22-28); CREATININE 2.1 mg/dl (0.6-1.3); GLUCOSE,RANDOM 232 mg/dl (74-106); SGOT/AST 11 U/L (10-42); SGPT/ALT 10 U/L (10-40); TOT PROT 5.7 g/dl (6.4-8.3)
--- NOTE | 2016-06-28 13:01 | PN ---
[id number] OBJECTIVE: patient is a t 71 y/o male with a PMHx of: Hypertension, IDDM , Prostate Ca (injections q6 months). PSHx of: Right Knee Arthroscopy 20 yrs ago. s/p R- TKR POD # 2 (Aliciaaro) Vital Signs Period Temp Pulse Resp BP Sys/Dominguez Pulse Ox Last 24 Hr 97.6 F-99.2 F 58-85 18-20 122-157/50-74 93-96 GENERAL: The patient is awake, alert, and fully oriented, in no acute distress. HEAD: Normal with no signs of trauma. EYES: PERRL, extraocular movements intact, sclera anicteric, conjunctiva clear. No ptosis. ENT: Ears normal, nares patent, oropharynx clear without exudates, moist mucous membranes. NECK: Trachea midline, full range of motion, supple. LUNGS: Breath sounds equal, clear to auscultation bilaterally, no wheezes, no crackles, no accessory muscle use. HEART: Regular rate and rhythm, S1, S2 without murmur, rub or gallop. ABDOMEN: Soft, nontender, nondistended, normoactive bowel sounds, no guarding, no rebound, no hepatosplenomegaly, no masses. EXTREMITIES: 2+ pulses, warm, well-perfused, no edema. RIGHT LOWER EXTREMITY: dressing cdi, less than 3 second capillary refill, + 3 pedal pulse, scd/ailyn NEUROLOGICAL: Cranial nerves II through XII grossly intact. Normal speech, gait not observed. PSYCH: Normal mood, normal affect. SKIN: Warm, dry, normal turgor, no rashes or lesions noted Laboratory Results - last 24 hr 06/27/16 06/27/16 06/28/16 16:37 21:14 06:21 WBC RBC Hgb Hct MCV MCHC RDW Plt Count MPV Sodium Potassium Chloride Carbon Dioxide Anion Gap BUN Creatinine Creat Clearance w eGFR POC Glucometer 376 398 238 Random Glucose Calcium Total Bilirubin AST ALT Alkaline Phosphatase Total Protein Albumin 06/28/16 06/28/16 06/28/16 07:44 07:44 12:16 WBC 9.4 RBC 3.44 L Hgb 10.1 L Hct 30.6 L MCV 89.0 MCHC 32.9 RDW 13.1 Plt Count 196 MPV 9.6 Sodium 135 L Potassium 4.8 Chloride 105 Carbon Dioxide 21 L Anion Gap 9 BUN 38 H Creatinine 2.1 H Creat Clearance w eGFR 31.47 POC Glucometer 234 Random Glucose 232 H Calcium 8.3 L Total Bilirubin 0.6 AST 11 ALT 10 Alkaline Phosphatase 56 Total Protein 5.7 L Albumin 2.9 L Active Medications Generic Name Dose Route Start Last Admin Trade Name Freq PRN Reason Stop Dose Admin Acetaminophen 650 mg 06/26/16 18:00 06/28/16 06:36 Tylenol - PO 06/29/16 17:59 650 mg Q6H MAGDALENO Administration Al Hydroxide/Mg Hydroxide 30 ml 06/26/16 13:48 Mylanta Oral Suspension - PO Q4H PRN DYSPEPSIA Amlodipine Besylate 10 mg 06/26/16 22:00 06/27/16 21:34 Norvasc - PO 10 mg HS MAGDALENO Administration Ascorbic Acid 500 mg 06/26/16 22:00 06/28/16 10:03 Vitamin C - PO 500 mg BID MAGDALENO Administration Aspirin 325 mg 06/27/16 08:00 06/28/16 07:55 Asa - PO 325 mg DAILY@0800 MAGDALENO Administration Atorvastatin Calcium 80 mg 06/26/16 22:00 06/27/16 21:34 Lipitor - PO 80 mg HS MAGDALENO Administration Calcium Carbonate/Cholecalciferol 1 tab 06/26/16 22:00 06/28/16 10:03 Os-Saravanan 500+D - PO 1 tab BID MAGDALENO Administration Celecoxib 200 mg 06/27/16 10:00 06/28/16 10:03 Celebrex - PO 200 mg DAILY MAGDALENO Administration Cholecalciferol 1,000 unit 06/27/16 10:00 06/28/16 10:03 Vitamin D3 - PO 1,000 unit DAILY MAGDALENO Administration Fentanyl 25 mcg 06/26/16 10:53 Sublimaze Injection - IVPUSH 06/29/16 10:54 [id number] PRN PAIN Ferrous Sulfate 325 mg 06/26/16 22:00 06/28/16 10:04 Feosol - PO 325 mg BID MAGDALENO Administration Furosemide 40 mg 06/27/16 10:00 06/28/16 10:03 Lasix - PO 40 mg DAILY MAGDALENO Administration Gabapentin 300 mg 06/26/16 22:00 06/28/16 10:03 Neurontin - PO 06/29/16 21:59 300 mg BID MAGDALENO Administration Sodium Chloride 1,000 mls @ 125 mls/hr 06/26/16 14:00 06/27/16 14:47 Normal Saline - IV Not Given ASDIR MAGDALENO Insulin Aspart 1 vial 06/26/16 16:30 06/28/16 07:54 Novolog Vial Sliding Scale - SQ 10 units ACHS MAGDALENO Administration Protocol Insulin Aspart 5 units 06/27/16 16:30 06/28/16 07:54 Novolog SQ 5 units ACHS MAGDALENO Administration Insulin Detemir 30 units 06/26/16 22:00 06/28/16 06:44 Levemir Vial SQ 30 units BIDI MAGDALENO Administration Magnesium Hydroxide 30 ml 06/26/16 13:48 Milk Of Magnesia - PO PRN PRN CONSTIPATION Multivitamins/Minerals/Vitamin C 1 tab 06/27/16 10:00 06/28/16 10:03 Tab-A-Vit - PO 1 tab DAILY MAGDALENO Administration Ondansetron HCl 4 mg 06/26/16 13:48 Zofran Injection IVPB Q6H PRN NAUSEA Oxycodone HCl 10 mg 06/26/16 22:00 06/28/16 10:02 Oxycontin - PO 06/29/16 10:54 10 mg BID MAGDALENO Administration Oxycodone HCl 5 mg 06/26/16 10:54 Roxicodone - PO 06/29/16 10:55 Q4H PRN PAIN LEVEL 1-5 Oxycodone HCl 10 mg 06/26/16 10:54 Roxicodone - PO 06/29/16 10:55 Q4H PRN PAIN LEVEL 6-10 Pantoprazole Sodium 40 mg 06/27/16 10:00 06/28/16 10:03 Protonix - PO 40 mg DAILY MAGDALENO Administration Senna/Docusate Sodium 1 tablet 06/26/16 22:00 06/28/16 10:03 Pericolace - PO 1 tablet BID MAGDALENO Administration Terazosin HCl 2 mg 06/26/16 22:00 06/28/16 10:07 Hytrin - PO 2 mg BID MAGDALENO Administration ASSESSMENT/PLAN: 1) ms s/p right TKR - pt as per orthopedist - prn pain medication - incentive spirometer 2) card hypertension - hold AC due to WISAM, continue norvasc and hytrin chronic diastolic congestive heart failure - last echo 2015, EF 53%, - pt euvolemic on exam, continue lasix (home dose) HLD - continue statin 3) endo iddm - continue fingersticks achs w/regular insulin coverage and levermir bid - elevated fingersticks start novolg 5units achs 4) neph wisam - creatine 2.2 baseline 1.8 (06/06/16) - close monitoring Dispo: We will continue to follow the patient. Thank you for this consultative opportunity. Visit type - Emergency Visit Emergency Visit: No - New Patient This patient is new to me today: No - Critical Care Critical Care patient: No - Discharge Referral Referred to [facility] No
--- NOTE | 2016-06-28 15:15 | PATH ---
Surgical Pathology Report Patient Name: NISSA ROLDAN Med. Rec. #: [id number] /Age/Gender: 1945 (Age: 71) / M Account: [id number] Location: [facility] Taken: 06/26/2016 Received: 06/26/2016 Reported: 06/28/2016 Physicians: Caroline Romero M.D. Specimen(s) Received RIGHT KNEE BONES Clinical History Unilateral primary osteoarthritis right knee Final Diagnosis BONE AND SOFT TISSUE, RIGHT KNEE, REPLACEMENT: DEGENERATIVE JOINT DISEASE. Electronically Signed William Oates M.D. Gross Description Received in formalin labeled "right knee bones," is an 11.0 x 8.5 x 2.0 cm aggregate of multiple varela, irregular portions of bone and soft tissue. The tibial plateau measures 7.7 x 5.8 x 2.0 cm. There is a 2 cm in greatest dimension area of eburnation identified. The remaining articular surfaces are varela-yellow and diffusely granular. The underlying trabecular bone is yellow and hard. Barrel Stave Inspector sections are submitted in one cassette, following decalcification. 06/27/201606/27/2016
== END 2016-06-28 14:41 | disposition home health service (06) | DRG 470 ==
LOC: FM/S 06:02
PROVIDERS: ADMIT Orthopaedic Surgery; ATTEND Orthopaedic Surgery
PROC: 8E0YXBZ Computer Assisted Procedure of Lower Extremity (ICD-10-PCS; 2016-06-26)
PROC: 0SRC0J9 Replacement of Right Knee Joint with Synthetic Substitute, Cemented, Open Approach (ICD-10-PCS; principal; 2016-06-26 08:00)
DX: M17.11 Unilateral primary osteoarthritis, right knee (principal); N17.9 Acute kidney failure, unspecified; I10 Essential (primary) hypertension; E11.9 Type 2 diabetes mellitus without complications; C61 Malignant neoplasm of prostate; Z96.651 Presence of right artificial knee joint; Z79.4 Long term (current) use of insulin
CPT/HCPCS: 36415; 73560-TC-RT; 80048; 80053; 85027; 88305-TC; 88311-TC; 94010; 94760; 97116-GP; 97162-PG